=== PATIENT | male | born 1995 | race Caucasian/White ===

== ENCOUNTER 2018-07-16 17:08 | Emergency (ER) | payer BC ==
[2018-07-16] MEDS ORDERED: Ondansetron PF 4 MG/2 ML Vial ONE (18:05)
[2018-07-16] MEDS ORDERED: Morphine 4 MG/ML VIAL ONE ×2 (18:05→19:37)
--- NOTE | 2018-07-16 18:55 | ULT ---
Exam: Bilateral scrotal ultrasound with color and spectral Doppler imaging: HISTORY: Scrotal pain, possible injury FINDINGS: Right testes measures 4.7 x 3.4 x 2.5 cm. Left testes measures 4.6 x 3 x 2.6 cm. Minimal right-sided hydrocele. Right epididymal head cyst, 0.7 cm in maximum length. There is a heterogeneously 4.9 x 3.8 x 2.8 cm echogenic very hypervascular extratesticular mass involving the right scrotum primarily inferiorly. I would favor this being focal acute epididymitis given extensive hypervascularity and not hematoma secondary to recent trauma which would not be vascular. No intratesticular mass. Vascular flow is documented to both testes. No evidence for testicular torsi on. IMPRESSION: Large hypervascular extratesticular mass in the right scrotum inferiorly which I favor to be related to acute epididymitis. No intratesticular mass or testicular torsion. Trace hydrocele and focal right epididymal head cyst.
[2018-07-16 20:05] LABS: Hemoglobin 14.7 g/dL (14.0-18.0); Red Blood Cell (RBC) Count 4.87 mill/uL (4.70-6.10); White Blood Cell (WBC) Count 11.3 thou/uL (4.8-10.8)
[2018-07-16 20:06] LABS: Mean Corpuscular HGB CONC 33.4 g/dL (32.0-36.0); Mean Corpuscular Hemoglobin 30.1 pg (27.0-31.0); Mean Corpuscular Volume 90.3 fL (78.0-98.0); Mean Platelet Volume 7.5 fL (7.4-10.4); Platelet Count 205 thou/uL (130-400); RBC Distribution Width 12.1 % (11.5-14.5)
[2018-07-16 20:28] LABS: Bilirubin Negative (Negative); Blood, Urine Negative (Negative); Clarity Clear (Clear); Glucose, Urine (Dipstick) Negative (Negative); Leukocyte Negative (Negative); Nitrite Negative (Negative); Protein, Urine (Dipstick) Trace mg/dL (Neg-Trace); Specific Gravity, Urine 1.015 (1.005-1.030)
[2018-07-16] MEDS ORDERED: Sodium Chloride 0.9% 100 ML ONE (20:57)
[2018-07-16] MEDS ORDERED: cefTRIAXone\\ROCEPHIN 1 GM VIAL ONE (20:57)
[2018-07-16] MEDS ORDERED: Azithromycin 250 MG TAB ONE (21:03)
[2018-07-16 22:13] LABS: #Basophils 0.1 thou/uL (0.0-0.2); #Eosinphils 0.1 thou/uL (0.0-0.7); #Lymphocytes 2.1 thou/uL (1.20-3.40); #Monocytes 0.7 thou/uL (0.11-0.59); #Neutrophils 8.2 thou/uL (1.40-6.50); %Basophils 0.7 % (0.0-1.0); %Eosinophils 0.8 % (0.0-10.0); %Lymphocytes 18.8 % (21.0-51.0); %Monocytes 6.6 % (0.0-10.0); %Neutrophils 73.2 % (42.0-75.0)
[2018-07-18 04:20] LABS: Chlam.trachomatis by PCR,Urine DETECTED (NotDetected)
== END 2018-07-16 21:30 | disposition home or self-care (01) ==
LOC: SCSER 17:08
DX: N45.1 Epididymitis (principal); F17.220 Nicotine dependence, chewing tobacco, uncomplicated; Z79.899 Other long term (current) drug therapy
CPT/HCPCS: 76870; 81003; 85025; 87491; 87591; 93976; 96361; 96365; 96375; 96376; J0696; J2270; J2405; J3490